=== PATIENT | male | born 1975 | race African-American/Black ===

== ENCOUNTER 2021-07-31 04:32 | Emergency (ER) | payer OTHER ==
[2021-07-31 05:18] LABS: BASOPHIL 0.3 % (0-2); EOSINOPHIL 1.5 % (0-5); HCT 44.3 % (42.0-52.0); HGB 14.6 g/dl (13.2-18.0); LYMPHOCYTE 23.7 % (15-48); MCV 94.1 fL (78.0-100.0); MONOCYTE 7.1 % (0-12); MPV 9.3 fL (6.0-9.5); NEUTROPHIL 67.2 % (41-80); NRBC 0; PLT 237 K/uL (150-400); RBC 4.71 M/uL (4.70-6.00); WBC 9.3 K/uL (4.0-10.5)
[2021-07-31 05:23] LABS: INR 0.94 (0.9-1.2); PTT 28.9 SECONDS (24.4-34.7)
[2021-07-31 05:31] LABS: ALBUMIN 4.3 g/dL (3.4-5.0); BILIRUBIN - TOTAL 0.2 mg/dL (0.2-1.0); BUN/CREAT RATIO (CALC) 13.1 RATIO; CREATININE 0.99 mg/dL (0.67-1.17); GLOBULIN (CALCULATION) 3.7 g/dL; POTASSIUM 4.1 mmol/L (3.5-5.1)
[2021-07-31 07:52] LABS: BILIRUBIN NEGATIVE (NEGATIVE); BLOOD NEGATIVE Ery/uL (NEGATIVE); CLARITY CLEAR (CLEAR); COLOR YELLOW (YELLOW); GLUCOSE (U) NORMAL (NORMAL); LEUKOCYTES NEGATIVE Leu/uL (NEGATIVE); NITRITE NEGATIVE (NEGATIVE); PROTEIN NEGATIVE (NEGATIVE); SPECIFIC GRAVITY 1.015 (1.001-1.030); UROBILINOGEN 0.2 mg/dL (0.2-1.0); pH 7.5 (5.0-9.0)
[2021-07-31] MEDS ORDERED: CYCLOBENZAPRINE10 MG PO (08:13)
[2021-07-31] MEDS ORDERED: HYDROCODON-ACE1 EAC2 PO (08:13)
[2021-07-31] MEDS ORDERED: NAPROXEN500 MG PO (08:13)
== END 2021-07-31 08:38 | disposition home or self-care (01) ==
LOC: FER 04:32
PROVIDERS: Emergency Medicine
DX: S50.312A Abrasion of left elbow, initial encounter (principal); S60.512A Abrasion of left hand, initial encounter; R07.89 Other chest pain; I10 Essential (primary) hypertension; V20.4XXA Motorcycle driver injured in collision with pedestrian or animal in traffic accident, initial encounter; Y92.410 Unspecified street and highway as the place of occurrence of the external cause
CPT/HCPCS: 36415; 71260; 80053; 81003; 83690; 85025; 85610; 85730; 93005; J1170; J2405; J2550; J7030; Q9967